=== PATIENT | male | born 1975 | race African-American/Black ===

== ENCOUNTER 2020-06-24 07:45 | Emergency (ER) | payer SELFPAY ==
[~2020-06-24] VITALS: Ht 180.3 cm; Wt 74.8 kg
[2020-06-24 07:57] VITALS: BP 131/86
--- NOTE | 2020-06-24 08:08 | NUR ---
Patient discharged to home in stable condition. Written and verbal after care instructions given. Patient verbalizes understanding of instruction.
== END 2020-06-24 08:08 | disposition home or self-care (01) ==
LOC: ER 07:51
DX: Z76.0 Encounter for issue of repeat prescription (principal); E11.9 Type 2 diabetes mellitus without complications